=== PATIENT | female | born 1965 | race Caucasian/White ===

== ENCOUNTER 2017-03-10 13:21 | Emergency (ER) | payer OTHER ==
[2017-03-10 13:34] VITALS: BP 117/63; PULSE 76; TEMP 97.9; BMI 29.5
[2017-03-10] MEDS ORDERED: diazePAM 5 MG TABLET PO ONE (14:15)
[2017-03-10] MEDS ORDERED: KETOROLAC TROMETHAMINE 30 MG/1 ML VIAL IM ONE (14:15)
[2017-03-10] MEDS ORDERED: KETOROLAC TROMETHAMINE 30 MG/1 ML VIAL ONE (14:18)
[2017-03-10] MEDS ORDERED: diazePAM 5 MG TABLET ONE (14:18)
--- NOTE | 2017-03-10 14:22 | PDOC ---
History of Present Illness - General Chief Complaint: Pain, Acute Stated Complaint: PAIN Time Seen by Provider: 03/10/17 13:50 History Source: Patient - History of Present Illness Initial Comments: 03/10/17 14:16 This is a 52-year-old woman past mental history of hypertension presents with right lower back pain starting approximately 3-4 weeks ago with sudden worsening last night. Patient states when the pain initially started she was sitting in the chair at work. She is tried taking [id number] Tylenol with minimal relief. Patient denies any trauma. Patient denies any saddle anesthesia , loss of bladder or bladder continence, dysuria, urinary frequency, abdominal pain, nausea, vomiting, fever, chills. PMH: Hypertension PSH: Denies NKDA Past History - Past Medical History Allergies/Adverse Reactions: Allergies Allergy/AdvReac Type Severity Reaction Status Date / Time No Known Allergies Allergy Verified 03/10/17 13:29 Home Medications: Ambulatory Orders Losartan Potassium 50 mg PO DAILY 03/10/17 COPD: No DVT: No Dementia: No Diabetes: No HTN: Yes - Immunization History Immunization Up to Date: Yes - Suicide/Smoking/Psychosocial Hx Smoking History: Never smoked Have you smoked in the past 12 months: No Information on smoking cessation initiated: No Hx Alcohol Use: No Drug/Substance Use Hx: No Substance Use Type: None Review of Systems - Review of Systems Able to Perform ROS?: Yes Is the patient limited Arabic proficient: No Constitutional: No: Symptoms Reported HEENTM: No: Symptoms Reported Respiratory: No: Symptoms reported Cardiac (ROS): No: Symptoms Reported ABD/GI: No: Symptoms Reported : No: Symptoms Reported Musculoskeletal: Yes: See HPI Integumentary: No: Symptoms Reported Neurological: No: Symptoms reported *Physical Exam - Vital Signs Last Vital Signs Temp Pulse Resp BP Pulse Ox 97.9 F 76 16 117/63 97 03/10/17 13:30 03/10/17 13:30 03/10/17 13:30 03/10/17 13:30 03/10/17 13:30 - Physical Exam General Appearance: Yes: Appropriately Dressed, Apparent Distress HEENT: positive: Normal ENT Inspection Neck: positive: Trachea midline, Supple Respiratory/Chest: positive: Lungs Clear, Normal Breath Sounds. negative: Respiratory Distress Cardiovascular: positive: Regular Rhythm, Regular Rate Gastrointestinal/Abdominal: positive: Normal Bowel Sounds, Soft. negative: Tender Musculoskeletal: positive: Normal Inspection, Muscle Spasm (inferior to 12th rib ). 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 Patient states when the pain initially started she was sitting in the chair at work. She is tried taking [id number] Tylenol with minimal relief. Patient denies any trauma. Patient denies any saddle anesthesia , loss of bladder or bladder continence, dysuria, urinary frequency, abdominal pain, nausea, vomiting, fever, chills. She states the pain worsens with twisting and walking. Patient with full sensation to sacrum, buttocks, perineum. Patient with muscle spasm noted underneath 12th rib on her right side. Pain gets worse with full flexion of the right hip. Patient able to perform straight leg raises without difficulty. Patient able to her with steady gait. Diagnosis: Muscle spasm of the lower back I'll give the patient 30 mg of Toradol IM now and 5 mg of oral Valium. Patient is requesting to be discharged prior to reevaluation. I discussed physical findings with the patient and given her relative and recommendations in accordance with my physical findings. Patient verbalized understanding of discharge instructions. *DC/Admit/Observation/Transfer Diagnosis at time of Disposition: Muscle spasm of back - Discharge Dispostion Disposition: HOME Condition at time of disposition: Stable Admit: No - Referrals Referrals: Glendy Levin MD [Primary Care Provider] - - Patient Instructions Additional Instructions: Apply warm moist heat to affected area to help relieve muscle spasm. Gentle massage may help relieve muscle spasms. Take Naprosyn as directed by manufacturers instructions to help relieve pain. Return to emergency department for numbness or tingling to the rectum or genitals, inability to walk, loss of control of bladder or bowels, or any other concerns. Thank you very much for choosing us to provide your emergent healthcare needs. - Post Discharge Activity
== END 2017-03-10 14:30 | disposition home or self-care (01) ==
LOC: JERFT 13:21
PROC: 3E0233Z Introduction of Anti-inflammatory into Muscle, Percutaneous Approach (ICD-10-PCS; principal; 2017-03-10)
DX: M62.830 Muscle spasm of back (principal); I10 Essential (primary) hypertension
CPT/HCPCS: 99281-25

== ENCOUNTER 2023-04-10 01:11 | Inpatient (IN) | payer OTHER ==
[2023-04-10 01:16] VITALS: BMI 29.2
[2023-04-10] MEDS ORDERED: ALBUTEROL SO4 2.5/IPRATROPIUM 0.5 INH SOL 3 ML VIAL.NEB. NEB ONE (01:24)
[2023-04-10] MEDS ORDERED: methylPREDNISolone NA SUCC 125 MG/2 ML VIAL IVPB ONE (02:48)
[2023-04-10] MEDS ORDERED: ALBUTEROL SO4 0.083% IH SOL 2.5 MG/3 ML VIAL.NEB. NEB ONE ×2 (02:49→02:55)
[2023-04-10] MEDS ORDERED: methylPREDNISolone NA SUCC 125 MG/2 ML VIAL ONE (02:55)
[2023-04-10 03:22] LABS: BASO % 0.4 % (0-2.0); EOS % 6.2 % (0-4.5); HEMATOCRIT 41.3 % (32.4-45.2); HEMOGLOBIN 13.6 GM/dL (10.7-15.3); MEAN PLT VOLUME 7.5 fl (7.5-11.1); MONO % 5.3 % (3.8-10.2); NEUT % 73.1 % (42.8-82.8); PLATELET COUNT 279 10^3/uL (134-434); RBC 5.03 M/mm3 (3.60-5.2); RDW 13.5 % (11.6-15.6); WHITE BLOOD COUNT 9.6 K/mm3 (4.0-10.0)
[2023-04-10 03:31] LABS: INR 1.04 (0.83-1.09); PROTHROMBIN TIME (PATIENT) 12.1 SEC (9.7-13.0)
[2023-04-10 03:34] LABS: ACTIVATED PTT 32.8 SECONDS (25.2-36.5)
[2023-04-10 04:09] LABS: BILIRUBIN,TOTAL 0.3 mg/dL (0.2-1); BLOOD UREA NITROGEN 15.5 mg/dL (7-18); CALCIUM 8.8 mg/dL (8.5-10.1); CREATININE 0.7 mg/dL (0.55-1.3); MAGNESIUM 2.2 mg/dL (1.8-2.4); POTASSIUM 3.6 mmol/L (3.5-5.1); TOT PROT 7.3 g/dl (6.4-8.2)
[2023-04-10 10:21] VITALS: RESP 18; TEMP 97.7
[2023-04-10 12:56] VITALS: BP 153/90; PULSE 93
== END 2023-04-10 12:56 | disposition home or self-care (01) | DRG 203 ==
LOC: JER 01:11 → JERBED 03:43
PROVIDERS: ADMIT Internal Medicine; ATTEND Internal Medicine
DX: J45.909 Unspecified asthma, uncomplicated (principal); I10 Essential (primary) hypertension; D72.10 Eosinophilia, unspecified
CPT/HCPCS: 0241U-QW; 36415; 71046-TC-FY; 71275-TC; 80053; 83735; 83880; 84484; 85025; 85610; 85730; 93005; 93010; 99291; Q9967